=== PATIENT | male | born 1965 | race Caucasian/White ===

== ENCOUNTER 2019-03-02 16:13 | Emergency (ER) | payer OTHER ==
[~2019-03-02] VITALS: Ht 162.6 cm; Wt 77.1 kg
[2019-03-02] MEDS ORDERED: Oxycodone HCl5 M1 PO (19:08)
== END 2019-03-02 19:33 | disposition home or self-care (01) ==
LOC: ER 16:13
DX: S01.01XA Laceration without foreign body of scalp, initial encounter (principal); S13.9XXA Sprain of joints and ligaments of unspecified parts of neck, initial encounter; F17.220 Nicotine dependence, chewing tobacco, uncomplicated; W18.09XA Striking against other object with subsequent fall, initial encounter
CPT/HCPCS: 12001; 36415; 70450; 72125; 90471; 90714; 96374-59; 99284-25; A9270; J2270; J7030

== ENCOUNTER 2020-02-23 13:05 | Day surgery (SDC) | payer OTHER ==
[~2020-02-23] VITALS: Ht 162.6 cm; Wt 69.9 kg
[~2020-02-23 13:05] MED LIST: Oxycodone HCl5 M1 PO
--- NOTE | 2020-02-23 13:43 | NUR ---
02/23/20 1343 Zoraida Burks SWITCH TO NURSE SEDATION OK PER DR RAMACHANDARN, DR FORMAN, AND THIS NURSE RXS. PT'S ONLY RISK FACTER IS RO W/ CPAP. BMI 26.
== END 2020-02-23 14:45 | disposition home or self-care (01) ==
LOC: ORSCSDS 13:05
PROVIDERS: Student in an Organized Health Care Education/Training Program
PROC: 0DBN8ZX Excision of Sigmoid Colon, Via Natural or Artificial Opening Endoscopic, Diagnostic (ICD-10-PCS; principal; 2020-02-23 14:30)
PROC: 0DBL8ZX Excision of Transverse Colon, Via Natural or Artificial Opening Endoscopic, Diagnostic (ICD-10-PCS; principal; 2020-02-23 14:30)
DX: Z12.11 Encounter for screening for malignant neoplasm of colon (principal); G47.33 Obstructive sleep apnea (adult) (pediatric); D12.3 Benign neoplasm of transverse colon; D12.5 Benign neoplasm of sigmoid colon; K64.8 Other hemorrhoids
CPT/HCPCS: 88305; J2704; J7120